=== PATIENT | female | born 1945 | race Caucasian/White ===

== ENCOUNTER 2020-11-22 00:49 | Emergency (ER) | payer MEDICARE, BC ==
[~2020-11-22] VITALS: Ht 162.6 cm; Wt 88.5 kg
[2020-11-22] MEDS ORDERED: OMEP20ER PO (01:39)
[2020-11-22] MEDS ORDERED: OXYB5 PO (01:39)
[2020-11-22] MEDS ORDERED: TRAZ100 PO (01:39)
[2020-11-22] MEDS ORDERED: LOSA50 PO (01:39)
[2020-11-22] MEDS ORDERED: ONDA4ODT MM (01:56)
== END 2020-11-22 02:10 | disposition home or self-care (01) ==
LOC: ER 00:49
DX: U07.1 COVID-19 (principal); R11.10 Vomiting, unspecified; Z88.8 Allergy status to other drugs, medicaments and biological substances; Z88.1 Allergy status to other antibiotic agents
CPT/HCPCS: 99282; A9270

== ENCOUNTER 2024-10-08 14:54 | Inpatient (IN) | payer MEDICARE, BC ==
[~2024-10-08] VITALS: Ht 162.6 cm; Wt 88.0 kg
[~2024-10-08 14:54] MED LIST: LOSA50 PO; OMEP20ER PO; ONDA4ODT MM; OXYB5 PO; TRAZ100 PO
[2024-10-08 16:18] LABS: BASOPHILS ABSOLUTE AUTO 0.04 K/mm3 (0.00-0.23); BASOPHILS PERCENT AUTO 0 % (0-2); EOSINOPHILS ABSOLUTE AUTO 0.02 K/mm3 (0.00-0.68); EOSINOPHILS PERCENT AUTO 0 % (0-6); Hematocrit 35.1 % (33.0-51.0); Hemoglobin 11.6 g/dL (11.5-16.0); IMMATURE GRAN ABSOLUTE AUTO 0.03 K/mm3 (0.00-0.10); IMMATURE GRAN PERCENT AUTO 0 % (0-1); LYMPHOCYTES ABSOLUTE AUTO 1.03 K/mm3 (0.84-5.20); LYMPHOCYTES PERCENT AUTO 9 % (21-46); MONOCYTES ABSOLUTE AUTO 0.44 K/mm3 (0.16-1.47); MONOCYTES PERCENT AUTO 4 % (4-13); Mean Corpuscular HGB Conc 33.0 g/dL (31.5-36.5); Mean Corpuscular Volume 86 fL (80-100); NEUTROPHILS ABSOLUTE AUTO 9.69 K/mm3 (1.96-9.15); NEUTROPHILS PERCENT AUTO 86 % (41-73); NRBC ABSOLUTE 0.00 K/mm3 (0.00-0.02); NRBC Auto 0.0 /100 WBC (0.0-0.2); Platelet Count 338 K/mm3 (150-400); RDW Coefficient Variation 15.3 % (11.7-14.2); RDW Standard Deviation 48.0 fL (35.1-46.3)
[2024-10-08 16:44] LABS: Alanine Aminotransfer (ALT/SGP 27.0 U/L (12-78); Albumin, Blood 3.4 g/dL (3.4-5.0); Albumin/Globulin Ratio 1.0 (0.8-1.8); Anion Gap 8.0 mmol/L (3-11); Aspartate Aminotrans (AST/SGOT 21.0 U/L (12-37); Bilirubin, Total 0.7 mg/dL (0.1-1.0); Blood Urea Nitrogen 21.0 mg/dL (8-24); CO2, Blood 30.0 mmol/L (21-32); Calcium, Blood 9.5 mg/dL (8.5-10.1); Chloride, Blood 98.0 mmol/L (98-108); Creatinine, Blood 0.96 mg/dL (0.40-1.00); Globulin, Blood 3.4 g/dL (2.2-4.0); Glucose, Blood 126.0 mg/dL (70-99); Potassium, Blood 4.0 mmol/L (3.5-5.5); Sodium, Blood 132.0 mmol/L (136-145); Total Protein, Blood 6.8 g/dL (6.4-8.2)
[2024-10-08] MEDS ORDERED: Ondansetron HCl 2 MG / ML 2ML Vial IV ONE (17:55)
[2024-10-08] MEDS ORDERED: Morphine Sulfate 4 MG/1 ML Injection IV ONE (17:55)
[2024-10-08] MEDS ORDERED: PRAMIPEXOLE0.125 M1 PO (17:58)
[2024-10-08] MEDS ORDERED: CYCLOBENZAPRINE30 MG PO (17:58)
[2024-10-08] MEDS ORDERED: SOLIFENACIN SUCC5 MG PO (17:59)
[2024-10-08] MEDS ORDERED: MUPIROCIN2210 TP (17:59)
[2024-10-08] MEDS ORDERED: Clonidine HCl0.1 MG PO (17:59)
[2024-10-08] MEDS ORDERED: DICLOFENAC SOD100 GM TP (17:59)
[2024-10-08] MEDS ORDERED: PREGABALIN100 MG PO (17:59)
[2024-10-08] MEDS ORDERED: NS 1,000 ML IV SCH ×2 (18:00→18:40)
[2024-10-08] MEDS ORDERED: SYMPROIC0.2 MG PO (18:00)
[2024-10-08] MEDS ORDERED: DOXAZOSIN MESYLA1 M2 PO (18:00)
[2024-10-08] MEDS ORDERED: ESTRADIOL42.5 GM VAG (18:00)
[2024-10-08] MEDS ORDERED: FUROSEMIDE40 MG PO (18:00)
[2024-10-08] MEDS ORDERED: LIDOCAINE1 EACH TOP (18:01)
[2024-10-08] MEDS ORDERED: TRELEGY ELLIPT1 EAC1 IH (18:01)
[2024-10-08] MEDS ORDERED: Albuterol 2.5 MG/3 ML VIAL INH PRN (18:40)
[2024-10-08] MEDS ORDERED: HydrALAZINE HCl 20 MG / ML 1ML Vial IV PRN (18:40)
[2024-10-08] MEDS ORDERED: FentaNYL Citrate 50 MCG/ML 2 ML Injection IV PRN (18:40)
[2024-10-08] MEDS ORDERED: Ondansetron HCl 2 MG / ML 2ML Vial IV PRN (18:40)
[2024-10-08] MEDS ORDERED: Misc. Inhaler INH SCH (19:10)
[2024-10-08 21:06] VITALS: BP 181/84
[2024-10-08] MEDS ORDERED: Pantoprazole Sodium 40 MG Injection IV ONE (22:40)
[2024-10-08 23:31] VITALS: BP 177/82
[2024-10-09] MEDS ORDERED: Ondansetron HCl 2 MG / ML 2ML Vial IV PRN (00:50)
--- NOTE | 2024-10-09 03:32 | NUR ---
NG PLACEMENT NG TUBE PLACED WITH PRIMARY RN, IMMEDIATE DARK GREEN FLASH. CALL PLACED TO IMAGING FOR CONFIRMATION XRAY.
[2024-10-09 05:46] VITALS: BP 173/82
[2024-10-09 07:08] VITALS: BP 177/84
--- NOTE | 2024-10-09 07:31 | NUR ---
SUMMARY PT WITH NO FURTHER COFFEE GROUND SPIT UP DUE TO NG PLACEMENT PER JEWEL BEARING BROACHER. DR JACOBSON AND PPI ORDERED. 700 GREEN BROWN OUT PER NG SO FAR.
[2024-10-09] MEDS ORDERED: FentaNYL Citrate 50 MCG/ML 2 ML Injection IV PRN (08:45)
[2024-10-09 11:28] LABS: Hematocrit 34.6 % (33.0-51.0); Hemoglobin 11.6 g/dL (11.5-16.0); Mean Corpuscular HGB Conc 33.5 g/dL (31.5-36.5); Mean Corpuscular Volume 87 fL (80-100); NRBC ABSOLUTE 0.00 K/mm3 (0.00-0.02); NRBC Auto 0.0 /100 WBC (0.0-0.2); Platelet Count 347 K/mm3 (150-400); RDW Coefficient Variation 15.7 % (11.7-14.2); RDW Standard Deviation 49.4 fL (35.1-46.3)
[2024-10-09 11:51] LABS: Anion Gap 9.0 mmol/L (3-11); Blood Urea Nitrogen 20.0 mg/dL (8-24); CO2, Blood 27.0 mmol/L (21-32); Calcium, Blood 9.4 mg/dL (8.5-10.1); Chloride, Blood 102.0 mmol/L (98-108); Creatinine, Blood 0.96 mg/dL (0.40-1.00); Glucose, Blood 128.0 mg/dL (70-99); Magnesium, Blood 1.9 mg/dL (1.6-2.4); Potassium, Blood 3.9 mmol/L (3.5-5.5); Sodium, Blood 134.0 mmol/L (136-145)
[2024-10-09 14:53] VITALS: BP 190/89
[2024-10-09 16:06] VITALS: BP 184/77
[2024-10-09] MEDS ORDERED: HYDROmorphone HCl/Pf 1MG SYR IV PRN (17:15)
[2024-10-09 19:46] VITALS: BP 188/86
--- NOTE | 2024-10-10 00:01 | NUR ---
ASSUMPTION OF CARE RECEIVED REPORT FROM BHAVESH RN. PT RESTING IN BED. A&O x3-4. VSS, HYPERTENSIVE. NG TUBE c DARK BROWN/GREEN OUPUT, POSITIONAL & REQUIRES FREQUENT FLUSHING. NO NEEDS STATED, CALL LIGHT IN REACH.
--- NOTE | 2024-10-10 02:41 | NUR ---
STATUS UPDATE PT MENTATION INCREASING IN CONFUSION. PT STATES "THIS ROOM DOEN'T LOOK LIKE A HOSPITAL ROOM. WHERE AM I?" PT REORIENTED TO ROOM. PT STATES SHE DOES NOT UNDERSTAND WHY SHE IS STAYING IN THE HOSPITAL OVERNIGHT. PT ASKS WHY SHE IS IN THE HOSPITAL. PT EDUCATED ON SBO DISEASE PROCESS AND MEDICAL INTERVENTIONS, INCLUDING THE USE OF A NG TUBE. PT STATES SHE IS NAUSEAS AND THE ZOFRAN ADMINISTED PER EMAR "IT AIN'T WORKING GIRL, TRY SOMETHING ELSE." EMESIS BAG PROVIDED, COLD WASH CLOTH APPLIED TO FOREHEAD. BED ALARM IN USE, CALL LIGHT IN REACH.
[2024-10-10] MEDS ORDERED: Prochlorperazine Edisylate 10 mg Vial IV PRN (02:50)
[2024-10-10 03:14] VITALS: BP 173/79
[2024-10-10] MEDS ORDERED: Pantoprazole Sodium 40 MG Injection IV SCH ×2 (06:00)
--- NOTE | 2024-10-10 06:38 | NUR ---
SHIFT SUMMARY S/P SBO. VSS. A&O x3, ORIENTED TO SELF/DATE/PERSON, REQUIRES REORIENTATION TO SITUATION. NG TO LIS c DARK BROWN/GREEN OUTPUT. BED ALARM IN USE. PT RESTLESS OVERNIGHT. VOIDING. SBA STAND/PIVOT TO BSC. CALL LIGHT IN REACH, REPORT GIVEN TO DAY RN.
[2024-10-10 07:28] VITALS: BP 187/76
[2024-10-10 09:18] LABS: BASOPHILS ABSOLUTE AUTO 0.02 K/mm3 (0.00-0.23); BASOPHILS PERCENT AUTO 0 % (0-2); EOSINOPHILS ABSOLUTE AUTO 0.00 K/mm3 (0.00-0.68); EOSINOPHILS PERCENT AUTO 0 % (0-6); Hematocrit 33.0 % (33.0-51.0); Hemoglobin 10.9 g/dL (11.5-16.0); IMMATURE GRAN ABSOLUTE AUTO 0.03 K/mm3 (0.00-0.10); IMMATURE GRAN PERCENT AUTO 0 % (0-1); LYMPHOCYTES ABSOLUTE AUTO 0.78 K/mm3 (0.84-5.20); LYMPHOCYTES PERCENT AUTO 11 % (21-46); MONOCYTES ABSOLUTE AUTO 0.73 K/mm3 (0.16-1.47); MONOCYTES PERCENT AUTO 10 % (4-13); Mean Corpuscular HGB Conc 33.0 g/dL (31.5-36.5); Mean Corpuscular Volume 88 fL (80-100); NEUTROPHILS ABSOLUTE AUTO 5.44 K/mm3 (1.96-9.15); NEUTROPHILS PERCENT AUTO 78 % (41-73); NRBC ABSOLUTE 0.00 K/mm3 (0.00-0.02); NRBC Auto 0.0 /100 WBC (0.0-0.2); Platelet Count 290 K/mm3 (150-400); RDW Coefficient Variation 15.8 % (11.7-14.2); RDW Standard Deviation 49.9 fL (35.1-46.3)
[2024-10-10 09:33] LABS: Anion Gap 6.0 mmol/L (3-11); Blood Urea Nitrogen 24.0 mg/dL (8-24); CO2, Blood 28.0 mmol/L (21-32); Calcium, Blood 8.9 mg/dL (8.5-10.1); Chloride, Blood 106.0 mmol/L (98-108); Creatinine, Blood 0.94 mg/dL (0.40-1.00); Glucose, Blood 129.0 mg/dL (70-99); Potassium, Blood 3.4 mmol/L (3.5-5.5); Sodium, Blood 137.0 mmol/L (136-145)
[2024-10-10 15:20] VITALS: BP 187/78
--- NOTE | 2024-10-10 17:46 | NUR ---
END OF SHIFT PT REMAINS NAUSEATED AND PAINFUL DESPITE NG TUBE. IV INFUSING RIGHT ARM. WILL CONTINUE TO MONITOR.
[2024-10-10 19:32] VITALS: BP 194/88
[2024-10-10 22:12] VITALS: BP 186/86
[2024-10-10 23:59] VITALS: BP 183/87
[2024-10-11] VITALS (8 sets, daily range): BP systolic 127–200; BP diastolic 73–89
--- NOTE | 2024-10-11 04:35 | NUR ---
SHIFT SUMMARY S/P SBO. VSS, HTN IMPROVING c MEDICATION PER EMAR. A&O x3. NG TO LIS c DARK BROWN OUTPUT. PT REPORTS NAUSEA, NO EMESIS. PT MEDICATED FOR PAIN PER EMAR. IV FLUIDS INFUSING. VOIDING. SBA STAND/PIVOT TO BSC. BED ALARM IN USE. PT DENIES PASSING FLATUS. ANTICIPATED SMALL BOWEL FOLLOW-THROUGH. CALL LIGHT IN REACH, WILL REPORT TO DAY RN.
[2024-10-11 06:38] LABS: Anion Gap 6.0 mmol/L (3-11); Blood Urea Nitrogen 26.0 mg/dL (8-24); CO2, Blood 28.0 mmol/L (21-32); Calcium, Blood 9.2 mg/dL (8.5-10.1); Chloride, Blood 108.0 mmol/L (98-108); Creatinine, Blood 0.88 mg/dL (0.40-1.00); Glucose, Blood 125.0 mg/dL (70-99); Magnesium, Blood 2.1 mg/dL (1.6-2.4); Phosphorus, Blood 2.6 mg/dL (2.5-4.9); Potassium, Blood 3.7 mmol/L (3.5-5.5); Sodium, Blood 138.0 mmol/L (136-145)
--- NOTE | 2024-10-11 10:42 | NUR ---
DURING SHIFT REPORT PT PULLED NGT. NOC RN REPORTS SOME CONFUSION IN THE NIGHT. UPON ASSESSMENT AT 0750 PT IS A/O X4 AND USES CALL LIGHT. THIS RN AND YAQUELIN FONSECA RN PLACED NEW NGT AT ABOUT 0830 TO R AMA ORTIZ TO VERIFY. PT HAD ABOUT 300ML OF BROWN OUTPUT AT TIME OF INSERTION. TUBING SECURED TO NOSE AND GOWN. BLUE VENT TUBING LEFT OPEN PER DR. LUNA REQUEST.
--- NOTE | 2024-10-11 11:02 | NUR ---
NGT CLAMPED, PT TO IMAGING AT THIS TIME FOR SMALL BOWEL FOLLOW THROUGH.
--- NOTE | 2024-10-11 16:35 | NUR ---
SUMMARY: PT A/O TODAY, USING CALL LIGHT. TO IMAGING FREQUENTLY FOR SMALL BOWELL FT. PT IS HAVING LIQ BM'S NOW. CONTINUES TO BE NAUSEATED, MEDICATED PER EMAR. NGT TO LIS AND HAS HAD A TOTAL OF ABOUT 2L OF DARK BROWN OUTPUT. DILAUDID 1MG GIVEN ABOUT Q2, PT REPORTS PAIN "IS BETTER" TONIGHT. FLUIDS INFUSING, BED ALARM ON FOR SAFETY.
[2024-10-12] MEDS ORDERED: FentaNYL Citrate 50 MCG/ML 2 ML Injection IV PRN (02:25)
[2024-10-12 03:53] VITALS: BP 179/82
--- NOTE | 2024-10-12 04:00 | NUR ---
PROVIDER UPDATE HOSPITALIST NOTIFIED OF CURRENT PAIN MANAGEMENT NOT COVERING WELL AND PT REPORTED TAKING NORCO 7.5 4-6X/DAY AT BASELINE. SHE ALSO REPORTED SEEING A PAIN SPECIALIST IN [place]. NEW ORDER OBTAINED, SEE EMAR. PT EDUCATED AND VERBALIZED UNDERSTANDING.
--- NOTE | 2024-10-12 06:36 | NUR ---
SHIFT SUMMARY NEW CHANGE TO PAIN MEDS, SEE EMAR. NG IN PLACE ON LIS WITH 1000ML OF BROWN/GREEN THIN LIQUID NOTED IN CANISTER. IS VOIDING WITH SEVERAL LIQUID STOOLS. SBA TO BSC. SP02 ABOVE 94% ON RA, CONT BIOX IN PLACE. IS NPO, IVF INFUSING PER EMAR AT 100ML/HR. BP ELEVATED, COVERAGE NOT INDICATED PER ORDERS. IS ABLE TO MAKE NEEDS KNOWN. PT CURRENTLY RESTING IN BED WITH CALL LIGHT IN REACH, RESP EVEN/UNLABORED. WILL GIVE REPORT TO ONCOMING RN.
[2024-10-12 07:30] VITALS: BP 192/85
[2024-10-12 07:59] LABS: Blood Urea Nitrogen 30 mg/dL (8-24); CO2, Blood 29 mmol/L (21-32); Calcium, Blood 9.1 mg/dL (8.5-10.1); Chloride, Blood 120 mmol/L (98-108); Creatinine, Blood 1.07 mg/dL (0.40-1.00); Glucose, Blood 140 mg/dL (70-99); Potassium, Blood 3.4 mmol/L (3.5-5.5)
[2024-10-12 08:24] LABS: Anion Gap Unable to Calculate mmol/L (3-11)
--- NOTE | 2024-10-12 08:38 | NUR ---
DC'D NGT PER ORDERS. PROVIDED ICE CHIPS. INSTRUCTED PT TO TAKE SLOWLY.
--- NOTE | 2024-10-12 11:21 | NUR ---
NTOFIED DR HENNESSY OF LAB: SODIUM 151, CONFIRMED WITH REDRAW.
[2024-10-12] MEDS ORDERED: HYDROcodone 7.5-APAP 325 TAB PO PRN (11:45)
[2024-10-12 15:40] VITALS: BP 159/65
--- NOTE | 2024-10-12 16:53 | NUR ---
SUMMARY NO ACUTE CHANGES T/O SHIFT. PT HAD SMALL SOFT, UNFORMED BMS. NGT DC'D THIS AM PER ORDERS. PT TOOK CLEAR LIQUIDS AND TOLERATED. ADVANCING TO FULL LIQUIDS FOR DINNER. IMPULSIVE AT TIMES, BED ALARM AND CHAIR ALARM IN USE FOR SAFETY. CALL LIGHT IN REACH.
--- NOTE | 2024-10-12 17:24 | NUR ---
turned over care to faisal scott rn.
--- NOTE | 2024-10-12 18:28 | NUR ---
assumed care of pt, she is doing well, tolerated her full liquid diet tonight, no acute changes, call light in reach.
[2024-10-12 19:55] VITALS: BP 166/73
[2024-10-13 04:25] VITALS: BP 150/71
[2024-10-13 05:38] LABS: Hematocrit 29.5 % (33.0-51.0); Hemoglobin 9.4 g/dL (11.5-16.0); Mean Corpuscular HGB Conc 31.9 g/dL (31.5-36.5); Mean Corpuscular Volume 91 fL (80-100); NRBC ABSOLUTE 0.00 K/mm3 (0.00-0.02); NRBC Auto 0.0 /100 WBC (0.0-0.2); Platelet Count 242 K/mm3 (150-400); RDW Coefficient Variation 16.0 % (11.7-14.2); RDW Standard Deviation 53.2 fL (35.1-46.3)
--- NOTE | 2024-10-13 05:57 | NUR ---
NOC SUMMARY- PT RESTED COMFORTABLY. NO NEW ISSUES. PT VOIDING AND PASSING GAS. PT TOLERATING PO INTAKE. CALL LIGHT IN REACH.
[2024-10-13 05:58] LABS: Anion Gap 7.0 mmol/L (3-11); Blood Urea Nitrogen 26.0 mg/dL (8-24); CO2, Blood 26.0 mmol/L (21-32); Calcium, Blood 8.3 mg/dL (8.5-10.1); Chloride, Blood 112.0 mmol/L (98-108); Creatinine, Blood 0.99 mg/dL (0.40-1.00); Glucose, Blood 92.0 mg/dL (70-99); Potassium, Blood 3.1 mmol/L (3.5-5.5); Sodium, Blood 142.0 mmol/L (136-145)
[2024-10-13 07:24] VITALS: BP 155/64
[2024-10-13] MEDS ORDERED: NS 250 ML IV PRN (08:05)
[2024-10-13] MEDS ORDERED: Lidocaine 4% 1 Patch TOP SCH (09:00)
[2024-10-13 14:21] VITALS: BP 138/76
[2024-10-13] MEDS ORDERED: Colace100 MG PO (14:27)
--- NOTE | 2024-10-13 15:01 | NUR ---
DISCHARGE ALL INSTRUCTIONS READ AND SIGNED. IV TAKEN OUT INTACT. VSS, PATIENT VOIDING, PASSING GAS, HAVING BMS. ALL BELONGINGS PACKED UP WITH PATIENT AND SPOUSE. PATIENT LEAVES VIA W/C TO PRIVATE CAR.
== END 2024-10-13 15:00 | disposition home or self-care (01) | DRG 389 ==
LOC: ER 14:54 → SURS 18:34
PROVIDERS: Internal Medicine; Nurse Practitioner Acute Care; Student in an Organized Health Care Education/Training Program; ADMIT Student in an Organized Health Care Education/Training Program
PROC: 0D9670Z Drainage of Stomach with Drainage Device, Via Natural or Artificial Opening (ICD-10-PCS; principal; 2024-10-09)
DX: K56.51 Intestinal adhesions [bands], with partial obstruction (principal); E87.0 Hyperosmolality and hypernatremia; E87.1 Hypo-osmolality and hyponatremia; I16.1 Hypertensive emergency; I11.0 Hypertensive heart disease with heart failure; K21.9 Gastro-esophageal reflux disease without esophagitis; I50.9 Heart failure, unspecified; G89.29 Other chronic pain; M54.9 Dorsalgia, unspecified; I45.10 Unspecified right bundle-branch block; G25.81 Restless legs syndrome; E66.9 Obesity, unspecified; I16.0 Hypertensive urgency; J44.9 Chronic obstructive pulmonary disease, unspecified; E87.6 Hypokalemia; Z90.49 Acquired absence of other specified parts of digestive tract; Z88.8 Allergy status to other drugs, medicaments and biological substances; Z87.891 Personal history of nicotine dependence; Z79.51 Long term (current) use of inhaled steroids; Z68.30 Body mass index [BMI] 30.0-30.9, adult
CPT/HCPCS: 36415; 74018; 74177; 74250; 80048; 80053; 83735; 84100; 84295; 85025; 85027; 86850; 86900; 86901; 93005; 93010; 94640; 94664; 94760; 94762; 96374-59; 96375; 99285-25; A9270; J0360; J0780; J1171; J2270; J2405; J2470; J3010; J3480; J7030; J7050; Q9967

== ENCOUNTER → 2024-11-10 | Outpatient (CLI) | payer MEDICARE, BC ==
[~2024-11-10] MED LIST changes: +CYCLOBENZAPRINE30 MG PO; +Clonidine HCl0.1 MG PO; +Colace100 MG PO; +DICLOFENAC SOD100 GM TP; +DOXAZOSIN MESYLA1 M2 PO; +ESTRADIOL42.5 GM VAG; +FUROSEMIDE40 MG PO; +LIDOCAINE1 EACH TOP; +MUPIROCIN2210 TP; +PRAMIPEXOLE0.125 M1 PO; +PREGABALIN100 MG PO; +SOLIFENACIN SUCC5 MG PO; +SYMPROIC0.2 MG PO; +TRELEGY ELLIPT1 EAC1 IH
== END ==
LOC: LAB 11:26 → LAB SHORT 11:26
DX: N39.0 Urinary tract infection, site not specified (principal)
CPT/HCPCS: 87086; 87147